=== PATIENT | female | born 1995 | race Caucasian/White ===

== ENCOUNTER 2018-03-08 15:15 | Emergency (ER) | payer SELFPAY ==
[~2018-03-08] VITALS: Ht 157.5 cm; Wt 54.4 kg
[2018-03-08] MEDS ORDERED: methylPREDNISolone 125 MG (Solu-MEDROL) VIAL ONE (16:05)
[2018-03-08] MEDS ORDERED: diphenhydrAMINE 50 MG/ML INJ (BENADRYL) ONE (16:05)
[2018-03-08] MEDS ORDERED: raNItidine 50 MG/2 ML INJ (ZANTAC) ONE (16:05)
[2018-03-08] MEDS ORDERED: diphenhydrAMINE 50 MG/ML INJ (BENADRYL) IVP ONE (16:15)
[2018-03-08] MEDS ORDERED: raNItidine 50 MG/2 ML INJ (ZANTAC) IJ SCH (16:15)
[2018-03-08] MEDS ORDERED: methylPREDNISolone 125 MG (Solu-MEDROL) VIAL IVP ONE (16:15)
--- NOTE | 2018-03-08 16:15 | ED General ---
General Chief Complaint: Allergic Reaction Stated Complaint: ALLERGIC REACTION Nursing Triage Note: PT PRESENTS TO ED WITH COMPLAINTS OF ALLERGIC REACTION STARTING AT 1400. PT REPORTS GENERALIZED ITCHING HIVES AND THROAT DISCOMFORT. PT TOOK 2 BENADRYL ROLL CLEANER. PT REPORTS THROAT DISCOMFORT IS BETTER HOWEVER ITCHING HAS NOT IMPROVED. Nursing Sepsis Screen: No Definite Risk Source of Information: Patient Exam Limitations: No Limitations History of Present Illness Date Seen by Provider: Mar 08, 2018 Time Seen by Provider: 16:13 Initial Comments To ER with an allergic reaction that began about 1400 today. She had just finished eating a salad which had tomatoes on it. She is not known to be allergic to tomatoes but suspects that this may be the cause of her allergic reaction. She has hives, diffuse itching and an itchy but not swollen feeling tongue. She's never had this before. She did take 2 Benadryl tablets at home one hour ago it would be at 3 PM. She denies improvement Timing/Duration: 1-3 Hours Severity: Moderate Allergies and Home Medications Allergies Coded Allergies: No Known Drug Allergies (Unverified , 03/08/18) Patient Home Medication List Home Medication List Reviewed: Yes Review of Systems Constitutional: see HPI EENTM: see HPI Respiratory: no symptoms reported Cardiovascular: no symptoms reported Genitourinary: no symptoms reported Musculoskeletal: no symptoms reported Skin: see HPI Psychiatric/Neurological: No Symptoms Reported Hematologic/Lymphatic: No Symptoms Reported Past Lbimsea-Gwkdva-Oruvze Hx Patient Social History Alcohol Use: Denies Use Recreational Drug Use: Yes Drug of Choice: MARIJUANA Smoking Status: Current Everyday Smoker Type Used: Cigarettes Recent Foreign Travel: No Contact w/Someone Who Travel: No Recent Infectious Disease Expo: No Recent Hopitalizations: No Physical Abuse: No Sexual Abuse: No Mistreated: No Fear: No Seasonal Allergies Seasonal Allergies: No Past Medical History Surgeries: Yes Abdominal, Tonsillectomy Respiratory: No Cardiac: No Neurological: No Genitourinary: No Gastrointestinal: No Musculoskeletal: No Endocrine: No HEENT: No Cancer: No Psychosocial: Yes Anxiety Nursing Suicide Risk Score: 0 Integumentary: No Blood Disorders: No Adverse Reaction/Blood Tranf: No Physical Exam Vital Signs Vital Signs - First Documented 03/08/18 15:58 Temp 97.2 Pulse 57 Resp 16 B/P (MAP) 123/88 (100) Pulse Ox 100 Capillary Refill : Less Than 3 Seconds Height, Weight, BMI Height: 5'2.00" Weight: 120lbs. oz. 54.676381ux; BMI Method:Stated General Appearance: No Apparent Distress, WD/WN, Other (speaks in full sentences, no distress, stable vital signs. No sign of airway involvement) HEENT: PERRL/EOMI, TMs Normal Neck: Full Range of Motion, Normal Inspection Respiratory: Lungs Clear, Normal Breath Sounds, No Accessory Muscle Use, No Respiratory Distress; No Stridor, No Wheezing Cardiovascular: Regular Rate, Rhythm, Normal Peripheral Pulses Gastrointestinal: Normal Bowel Sounds, Non Tender, Soft, Other (denies any abdominal cramping or diarrhea) Extremity: Normal Capillary Refill, Normal Inspection Neurologic/Psychiatric: Alert, Oriented x3 Skin: Normal Color, Warm/Dry, Rash Progress/Results/Core Measures Suspected Sepsis Recent Fever Within 48 Hours: No Infection Criteria Present: None New/Unexplained Altered Menta: No Sepsis Screen: No Definite Risk SIRS Temperature:97.2 Pulse: 57 Respiratory Rate: 16 Blood Pressure 123 /88 Mean: 100 Results/Orders My Orders Orders - GORGE TOPETE APRN Ranitidine Injection (Zantac Injection) (03/08/18 16:15) Methylprednisolone Sod Succ (Solu-Medrol (03/08/18 16:15) Diphenhydramine Injection (Benadryl Inje (03/08/18 16:15) Medications Given in ED Current Medications Medications Dose Ordered Sig/Rox Route Start Time Stop Time Status Last Admin Dose Admin Diphenhydramine HCl 25 mg ONCE ONCE IVP 03/08/18 16:15 03/08/18 16:16 DC 03/08/18 16:13 25 MG Methylprednisolone Sodium Succinate 125 mg ONCE ONCE IVP 03/08/18 16:15 03/08/18 16:16 DC 03/08/18 16:13 125 MG Vital Signs/I&O 03/08/18 03/08/18 03/08/18 15:58 16:14 17:07 Temp 97.2 98.3 Pulse 57 69 Resp 16 18 B/P (MAP) 123/88 (100) 123/71 Pulse Ox 100 98 Capillary Refill : Less Than 3 Seconds Blood Pressure Mean: 100 Departure Impression Primary Impression: Allergic reaction Disposition: 01 HOME, SELF-CARE Condition: Improved Departure-Patient Inst. Decision time for Depature: 16:49 Referrals: NO,LOCAL PHYSICIAN (PCP) Primary Care Physician Patient Instructions: Drug Allergy Add. Discharge Instructions: 1. Return to ER for any concerns 2. Follow-up with your doctor next week 3. Continue to take one Benadryl tablet every 4 hours for the rest of today. Return to ER for any worsening. All discharge instructions reviewed with patient and/or family. Voiced understanding. GORGE TOPETE APRN Mar 08, 2018 16:15
[2018-03-08 17:07] VITALS: BP 123/71
== END 2018-03-08 17:07 | disposition home or self-care (01) ==
LOC: EDUNIT# 15:15 → ER 15:17
DX: L50.9 Urticaria, unspecified (principal); T78.1XXA Other adverse food reactions, not elsewhere classified, initial encounter; F41.9 Anxiety disorder, unspecified; F12.10 Cannabis abuse, uncomplicated; F17.210 Nicotine dependence, cigarettes, uncomplicated; Z90.89 Acquired absence of other organs
CPT/HCPCS: 96372; 96374; 96375

== ENCOUNTER 2018-11-18 20:26 | Outpatient (CLI) | payer BC, MEDICAID ==
[~2018-11-18] VITALS: Ht 157.5 cm; Wt 81.2 kg
--- NOTE | 2018-11-18 20:25 | NUR ---
RENÉE VILLA presented to unit via AMBULATION from ED, accompanied by SO , with c/o ABD PAIN,DIZZINESS. RENÉE VILLA weighed, gowned, voided, and to bed. EFHM and TOCO applied, VS taken. RENÉE VILLA oriented to bed controls, call light, TV, heat, and A/C controls.
[2018-11-18 20:35] VITALS: BP 130/90
[2018-11-18] MEDS ORDERED: PREN-142 PO (20:38)
[2018-11-18 20:43] LABS: BILIRUBIN,URINE NEGATIVE (NEGATIVE); CLARITY,URINE SLIGHTLY CLOUDY; COLOR,URINE YELLOW; GLUCOSE, URINE (UA) NEGATIVE (NEGATIVE); KETONES,URINE NEGATIVE (NEGATIVE); LEUKOCYTE ESTERASE ,URINE NEGATIVE (NEGATIVE); NITRITE,URINE NEGATIVE (NEGATIVE); PH,URINE 7 (5-9); PROTEIN,URINE 1+ (NEGATIVE); UROBILINOGEN,URINE NORMAL (NORMAL)
[2018-11-18 20:51] LABS: BACTERIA,URINE TRACE /HPF; SQUAMOUS EPITHELIAL CELL,UR >50 /HPF
[2018-11-18 21:17] LABS: BASOPHILS % (AUTO) 0 % (0-10); EOSINOPHILS # (AUTO) 0.3 10^3/uL (0.0-0.3); EOSINOPHILS % (AUTO) 2 % (0-10); HEMATOCRIT 33 % (35-52); HEMOGLOBIN 11.3 G/DL (11.5-16.0); LYMPHOCYTES # (AUTO) 2.7 X 10^3 (1.0-4.0); LYMPHOCYTES % (AUTO) 19 % (12-44); MEAN CORPUSCULAR HEMOGLOBIN 28 PG (25-34); MEAN CORPUSCULAR HGB CONC 34 G/DL (32-36); MEAN CORPUSCULAR VOLUME 82 FL (80-99); MEAN PLATELET VOLUME 10.1 FL (7.4-10.4); MONOCYTES # (AUTO) 1.3 X 10^3 (0.0-1.0); MONOCYTES % (AUTO) 9 % (0-12); NEUTROPHILS % (AUTO) 70 % (42-75); PLATELET COUNT 238 10^3/uL (130-400); RED CELL DISTRIBUTION WIDTH 13.1 % (10.0-14.5); WHITE BLOOD COUNT 14.3 10^3/uL (4.3-11.0)
[2018-11-18 21:37] LABS: ALANINE AMINOTRANSFERASE 13 U/L (0-55); ALBUMIN 3.1 GM/DL (3.2-4.5); ALKALINE PHOSPHATASE 161 U/L (40-136); BILIRUBIN,TOTAL 0.3 MG/DL (0.1-1.0); BUN/CREATININE RATIO 13; CALCIUM 9.5 MG/DL (8.5-10.1); CARBON DIOXIDE 17 MMOL/L (21-32); CHLORIDE 108 MMOL/L (98-107); CREATININE SERUM 0.69 MG/DL (0.60-1.30); GFR ESTIMATED > 60; GLUCOSE 95 MG/DL (70-105); POTASSIUM 3.8 MMOL/L (3.6-5.0); SODIUM 137 MMOL/L (135-145); TOTAL PROTEIN 6.2 GM/DL (6.4-8.2); URIC ACID 3.3 MG/DL (2.6-7.2)
[2018-11-18 21:42] VITALS: BP 117/79
--- NOTE | 2018-11-18 22:10 | NUR ---
D/C instructions given & explained, pt. verbalized understanding & signed, copy of D/C instructions to pt. Pt. left [facility] ambulatory escorted by SO, to home via private vehicle.
== END 2018-11-18 22:10 | disposition home or self-care (01) ==
LOC: LDRP 20:26 → WSo 20:26
PROVIDERS: ATTEND Family Medicine
DX: O99.89 Other specified diseases and conditions complicating pregnancy, childbirth and the puerperium (principal); R42 Dizziness and giddiness; R51 Headache; R10.11 Right upper quadrant pain; Z3A.36 36 weeks gestation of pregnancy
CPT/HCPCS: 36415; 80053; 81000; 82570; 83615; 84156; 84550; 85025; 99213

== ENCOUNTER 2018-12-21 09:30 | Inpatient (IN) | payer BC, MEDICAID ==
[2018-12-21] VITALS (51 sets, daily range): BP systolic 111–153; BP diastolic 70–105
[~2018-12-21] VITALS: Ht 158.8 cm; Wt 82.8 kg
--- NOTE | 2018-12-21 09:26 | NUR ---
RENÉE VILLA presented to unit via AMBULATORY from HOME, accompanied by S/O, with c/o POSSIBLE SROM. RENÉE VILLA weighed, gowned, voided, and to bed. EFHM and TOCO applied, VS taken. RENÉE VILLA oriented to bed controls, call light, TV, heat, and A/C controls.
[~2018-12-21 09:30] MED LIST: PREN-142 PO
[2018-12-21] MEDS ORDERED: D5 LR IV SOLUTION 1,000 ML IV ONE (09:59)
[2018-12-21] MEDS: D5 LR IV SOLUTION 1,000 ML IV SCH ×2 (10:15→18:40)
[2018-12-21] MEDS ORDERED: AMPICILLIN FOR IV USE 2,000 MG in WATER (STERILE) FOR INJECTION 14.8 ML IV SCH (10:35)
[2018-12-21] MEDS ORDERED: AMPICILLIN FOR IV USE 2,000 MG VIAL ONE (10:39)
[2018-12-21] MEDS ORDERED: BUTORPHANOL INJ 2 MG/ML (STADOL) VIAL ONE (10:39)
[2018-12-21] MEDS ORDERED: WATER (STERILE) FOR INJECTION 20 ML ONE (10:40)
[2018-12-21] MEDS ORDERED: BUTORPHANOL INJ 2 MG/ML (STADOL) VIAL IV PRN (10:45)
[2018-12-21] MEDS ORDERED: MINERAL OIL CONCENTRATE 99.9% 15 ML UDC TOP PRN (10:45)
[2018-12-21 10:46] LABS: BASOPHILS # (AUTO) 0.1 10^3/uL (0.0-0.1); BASOPHILS % (AUTO) 0 % (0-10); EOSINOPHILS # (AUTO) 0.5 10^3/uL (0.0-0.3); EOSINOPHILS % (AUTO) 4 % (0-10); HEMATOCRIT 38 % (35-52); HEMOGLOBIN 12.9 G/DL (11.5-16.0); LYMPHOCYTES # (AUTO) 2.1 X 10^3 (1.0-4.0); LYMPHOCYTES % (AUTO) 15 % (12-44); MEAN CORPUSCULAR HEMOGLOBIN 26 PG (25-34); MEAN CORPUSCULAR HGB CONC 34 G/DL (32-36); MEAN CORPUSCULAR VOLUME 77 FL (80-99); MEAN PLATELET VOLUME 10.4 FL (7.4-10.4); MONOCYTES # (AUTO) 0.9 X 10^3 (0.0-1.0); MONOCYTES % (AUTO) 7 % (0-12); NEUTROPHILS # (AUTO) 10.2 X 10^3 (1.8-7.8); NEUTROPHILS % (AUTO) 74 % (42-75); PLATELET COUNT 276 10^3/uL (130-400); RED CELL DISTRIBUTION WIDTH 14.1 % (10.0-14.5); WHITE BLOOD COUNT 13.7 10^3/uL (4.3-11.0)
[2018-12-21] MEDS ORDERED: SUFENTA 0.6MCG/ML BUPIVA 0.125 100 ML ONE (13:18)
[2018-12-21] MEDS ORDERED: fentaNYL INJECTION 100 MCG/2 ML AMP ONE (13:52)
--- NOTE | 2018-12-21 13:55 | NUR ---
Ran RIDLEY CRNA here for epidural placement. Procedure explained, consent reviewed and signed by anesthesia. Questions answered to patient's satisfaction. Time out taken to verify correct patient/procedure. 1359 Patient up to side of bed, assisted into sitting position. 1402 Betadine prep done x3 and sterile drape applied. 1403 Local done, see anesthesia record. 1406 Test dose given, see anesthesia record for drug and dosage. Epidural catheter secured in place. Epidural placement complete. 1409 Assisted back into bed, monitors adjusted. Epidural dosed, see anesthesia record. Epidural of Sufenta/Bupvicaine @12cc/hr stated per pump. Patient tolerated procedure well.
[2018-12-21] MEDS ORDERED: CATHETER FLUSH 10 ML SYR IV SCH (14:00)
[2018-12-21] MEDS: EPIDURAL (SUFENTA 0.6MCG/ML BUPIVA 0.125%) 100 ML BAG EPI PRN ×2 (14:10→21:45)
[2018-12-21] MEDS ORDERED: LIDOCAINE PF 2% 5 ML (XYLOCAINE) VIAL ONE (14:10)
[2018-12-21] MEDS ORDERED: BUPIVACAINE 0.25% 30 ML (SENSORCAINE) VIAL ONE (14:10)
[2018-12-21] MEDS ORDERED: LACTATED RINGERS 1,000 ML IV ONE ×2 (14:16)
[2018-12-21] MEDS: AMPICILLIN FOR IV USE 1,000 MG in WATER (STERILE) FOR INJECTION 7.4 ML IV SCH ×3 (14:25→22:40)
[2018-12-21] MEDS ORDERED: ONDANSETRON 4 MG/2 ML (SDV) Z0FRAN IV PRN (14:30)
[2018-12-21] MEDS ORDERED: NALOXONE 0.4 MG/ML 1 ML (NARCAN) VIAL IV PRN (14:30)
[2018-12-21] MEDS ORDERED: OXYTOCIN/NORMAL SALINE 500 ML IV SCH (17:41)
[2018-12-21] MEDS ORDERED: OXYTOCIN/NORMAL SALINE 500 ML IV ONE (17:45)
--- NOTE | 2018-12-21 23:06 | History & Physical-OB ---
OB - Chief Complaint & HPI Date/Time Date of Admission: Date of Admission: December 21, 2018 at 09:52 Date seen by a Provider: December 21, 2018 Time Seen by a Provider: 13:05 Chief Complaint/History OB-Reason for Admission/Chief: Rupture of Membranes Hx : 1 Expected Date of Delivery: December 21, 2018 Gestational Age in Weeks: 40 Gestational Age in Days: 0 History of Labs GBS Pos O neg Ab neg Rub Imm HIV/HepB/RPR NR GC/Chyl neg GTT normal Allergies and Home Medications Allergies Coded Allergies: No Known Drug Allergies (Unverified , 03/08/18) Home Medications Vit No.124/Iron/FA 1 Each Tablet, 1 EACH PO DAILY, (Reported) Patient Home Medication List Home Medication List Reviewed: Yes OB - History Hx of Present Care: Yes Ultrasounds: Normal mid trimester US Obstetrical Complications: None Medical Complications: None Obstetrical History Hx : 1 Delivery History Adverse Rxn to Tranfusion: No Patient Past Medical History Tobacco Use in Preg Social History/Family History HIV/AIDS: No Recent Infectious Disease Expo: No Sexually Transmitted Disease: No Alcohol Use: Denies Use Recreational Drug Use: No Smoking Cessation: Current every day smoker Immunizations Tetanus Booster (TDap): Less than 5yrs (During preg) Rubella: immune RPR/VDRL: Negative GBS Status: Positive HBsAG: Negative OB - Admission Exam Physical Exam Vitals: Vital Signs 12/21/18 12/21/18 18:45 19:00 Temp 98.9 Pulse 80 Resp 18 B/P (MAP) 139/92 (108) Pulse Ox 100 O2 Delivery Room Air HEENT: NCAT Heart: Rhythm Normal Lungs: Clear Abdomen: Gravid Extremities: Normal Cervical Dilatation: 3cm Effacement: 50% Station: 0 Membranes: Ruptured Amniotic Fluid: Clear Heart Rate: 140's Accelerations: Accelerations Present Decelerations: No Decelerations Contractions on Admission: < 5 Minutes Apart Labs Laboratory Tests Test 12/21/18 10:15 Range/Units White Blood Count 13.7 H 4.3-11.0 10^3/uL Red Blood Count 4.91 4.35-5.85 10^6/uL Hemoglobin 12.9 11.5-16.0 G/DL Hematocrit 38 35-52 % Mean Corpuscular Volume 77 L 80-99 FL Mean Corpuscular Hemoglobin 26 25-34 PG Mean Corpuscular Hemoglobin Concent 34 32-36 G/DL Red Cell Distribution Width 14.1 10.0-14.5 % Platelet Count 276 130-400 10^3/uL Mean Platelet Volume 10.4 7.4-10.4 FL Neutrophils (%) (Auto) 74 42-75 % Lymphocytes (%) (Auto) 15 12-44 % Monocytes (%) (Auto) 7 0-12 % Eosinophils (%) (Auto) 4 0-10 % Basophils (%) (Auto) 0 0-10 % Neutrophils # (Auto) 10.2 H 1.8-7.8 X 10^3 Lymphocytes # (Auto) 2.1 1.0-4.0 X 10^3 Monocytes # (Auto) 0.9 0.0-1.0 X 10^3 Eosinophils # (Auto) 0.5 H 0.0-0.3 10^3/uL Basophils # (Auto) 0.1 0.0-0.1 10^3/uL OB - Assessment/Plan/Diagnosis Assessment Assessment: active labor, rupture of membranes Admission Dx Active Term Rupture of Membranes Admission Status: Inpatient Order (span 2 midnights) Reason for Inpatient Admission: Labor Plan Plan: Expectant Management Other Plan 23 yo G1 @ 40.0 wga here for SROM Plan - GBS +; Start Ampicillin - Expectant management HEATHER WILLIS MD December 21, 2018 23:06
[2018-12-22] VITALS (22 sets, daily range): BP systolic 112–136; BP diastolic 8–92
[2018-12-22] MEDS ORDERED: ceFAZolin 2 GM/50 ML NS 50 ML ONE (01:11)
--- NOTE | 2018-12-22 01:28 | Labor Progress Note ---
Labor Progress Note Labor Progress Note Date Seen by Provider: December 22, 2018 Time Seen by Provider: 01:23 Subjective: Pt pushing for 2 hrs with minimal progress and maternal fatigue and tachycardia. Objective: Cervical exam: Complete, 1+ station FHT: 165-170 Assessment/Plan: Graciela Santos-Carrier is a (23 /Para 1 / ,Gestational Age (wks)40.1 wga with failure to progress Dr Bey Notified and Urgent C/s called 2 Grams Ancep and 500 Azithromycin now Vitals - Labs Vital Signs - I&O Vital Signs Date Time Temp Pulse Resp B/P (MAP) Pulse Ox O2 Delivery O2 Flow Rate FiO2 12/21/18 19:00 80 18 139/92 (108) 100 Room Air 12/21/18 18:45 98.9 84 18 130/84 (99) 100 Room Air 12/21/18 18:30 87 18 132/86 (101) 99 Room Air 12/21/18 18:15 89 18 133/85 (101) 100 Room Air 12/21/18 18:00 105 18 136/89 (105) 100 Room Air 12/21/18 17:45 95 18 127/84 (98) 100 Room Air 12/21/18 17:30 101 18 128/85 (99) 100 Room Air 12/21/18 17:15 96 18 129/83 (98) 100 Room Air 12/21/18 17:00 97 18 121/79 (93) 100 Room Air 12/21/18 16:45 89 18 123/81 (95) 100 Room Air 12/21/18 16:30 98.3 88 18 126/79 (95) 100 Room Air 12/21/18 16:15 85 18 123/85 (98) 100 Room Air 12/21/18 16:00 97 18 111/77 (88) 99 Room Air 12/21/18 15:45 83 18 116/78 (91) 99 Room Air 12/21/18 15:30 92 18 112/74 (87) 98 Room Air 12/21/18 15:15 83 18 115/75 (88) 99 Room Air 12/21/18 15:00 90 18 125/85 (98) 99 Room Air 12/21/18 14:45 97.9 106 18 128/85 (99) 99 Room Air 12/21/18 14:30 94 18 123/83 (96) 99 Room Air 12/21/18 14:27 95 18 119/82 (94) 98 Room Air 12/21/18 14:25 83 18 126/79 (95) Room Air 12/21/18 14:22 90 18 134/87 (103) 99 Room Air 12/21/18 14:19 94 18 127/82 (97) Room Air 12/21/18 14:16 83 18 132/87 (102) 99 Room Air 12/21/18 14:13 93 20 127/83 (98) 100 Room Air 12/21/18 14:11 72 20 128/77 (94) 100 Room Air 12/21/18 14:10 20 149/89 (109) Room Air 12/21/18 14:07 81 20 146/91 (109) 100 Room Air 12/21/18 14:04 99 20 142/86 (104) Room Air 12/21/18 14:01 93 20 153/89 (110) 100 Room Air 12/21/18 13:27 85 20 149/97 (114) Room Air 12/21/18 11:50 97.1 12/21/18 09:35 111 20 136/96 (109) Room Air I & O 12/22/18 07:00 Intake Total 2022.2 ml Balance 2022.2 ml Labs Laboratory Tests 12/21/18 10:15: White Blood Count 13.7H, Red Blood Count 4.91, Hemoglobin 12.9, Hematocrit 38, Mean Corpuscular Volume 77L, Mean Corpuscular Hemoglobin 26, Mean Corpuscular Hemoglobin Concent 34, Red Cell Distribution Width 14.1, Platelet Count 276, Mean Platelet Volume 10.4, Neutrophils (%) (Auto) 74, Lymphocytes (%) (Auto) 15, Monocytes (%) (Auto) 7, Eosinophils (%) (Auto) 4, Basophils (%) (Auto) 0, Neutrophils # (Auto) 10.2H, Lymphocytes # (Auto) 2.1, Monocytes # (Auto) 0.9, Eosinophils # (Auto) 0.5H, Basophils # (Auto) 0.1 HEATHER WILLIS MD December 22, 2018 01:28
[2018-12-22] MEDS ORDERED: METOCLOPRAMIDE INJ 10 MG/2 ML (REGLAN) ONE (01:32)
[2018-12-22] MEDS ORDERED: FAMOTIDINE 20MG/2ML IV (PEPCID) ONE (01:32)
[2018-12-22] MEDS ORDERED: CITRIC ACID/SOB CIT (BICITRA) 30 ML UDC ONE (01:32)
[2018-12-22] MEDS ORDERED: OXYTOCIN/NORMAL SALINE 500 ML IV SCH (01:47)
[2018-12-22] MEDS ORDERED: D5 LR IV SOLUTION 1,000 ML IV SCH (01:47)
[2018-12-22] MEDS ORDERED: KETAMINE/NaCl 50 MG/5 ML SYRINGE ONE (01:51)
[2018-12-22] MEDS ORDERED: LIDOCAINE PF 2% 5 ML (XYLOCAINE) VIAL ONE (01:53)
[2018-12-22] MEDS ORDERED: fentaNYL INJECTION 100 MCG/2 ML AMP ONE (01:55)
--- NOTE | 2018-12-22 01:55 | Progress Note-Pre Operative ---
Pre-Operative Progress Note H&P Reviewed The H&P was reviewed. Asked to consult by Dr. Parker for a 23 year old G1 at 40 1/7 week who presented on 12/20/18 with SROM. She has labored over 24 hours and has pushed > 2 hours without adequate descent. Dr. Parker has requested a section. She Is GBS positive and has received several doses of amp icillin. was uncomplicated Upon my exam, heartrate is 170s. Temp is 99.4 Urine is blood tinged with replacement of the urinary catheter and head is low in the pelvis but not < +1 station. There is a great amount of caput noted. She continues to contract every 2-3 minutes without augmentation at this time. Will plan primary section. Risks include infection, injury to fetus, bowel, bladder and ureter. There is also risk of bleeding. Hgb yesterday was 12.9. There is risk of blood clot, anesthesia risks and remote risk of . She has signed appropriate consent forms. She will be given Ancef and Azith romycin (as she has had rupture of membranes) prophylactically. Date Seen by Provider: December 22, 2018 Time Seen by Provider: 01:35 Date H&P Reviewed: December 22, 2018 Time H&P Reviewed: 01:30 Pre-Operative Diagnosis: Failure to descend, arrest of descent, tachycardia JAGDISH EL DO December 22, 2018 01:55
[2018-12-22] MEDS ORDERED: FAMOTIDINE 20MG/2ML IV (PEPCID) IV ONE (02:00)
[2018-12-22] MEDS ORDERED: ceFAZolin 2 GM/50 ML NS 50 ML IV ONE (02:00)
[2018-12-22] MEDS ORDERED: METOCLOPRAMIDE INJ 10 MG/2 ML (REGLAN) IV ONE (02:00)
[2018-12-22] MEDS ORDERED: TETANUS,DIPTH,PERTUSS P/F (BOOSTRIX) 0.5 ML VIAL IM SCH (02:00)
[2018-12-22] MEDS ORDERED: ONDANSETRON 4 MG/2 ML (SDV) Z0FRAN IVP PRN (02:00)
[2018-12-22] MEDS ORDERED: AZITHROMYCIN INJECTION 500 MG in NS (IVPB) 250 ML IV ONE (02:00)
[2018-12-22] MEDS ORDERED: CITRIC ACID/SOB CIT (BICITRA) 30 ML UDC PO ONE (02:00)
[2018-12-22] MEDS ORDERED: MEASLES,MUMPS,RUBELLA 1 EA INJ SC SCH (02:00)
[2018-12-22] MEDS ORDERED: morphine INJ 4 MG/ML 1 ML (VIAL/SYRINGE) IVP PRN (02:00)
--- NOTE | 2018-12-22 02:03 | NUR ---
PT TO OR AT THIS TIME FOR C/S. CARES TO OR STAFF.
[2018-12-22] MEDS: KETOROLAC 30 MG/ML VIAL IV SCH ×4 (02:30→23:22)
[2018-12-22] MEDS ORDERED: BUPIVACAINE 0.5% 30 ML (SENSORCAINE) VIAL ONE (02:44)
[2018-12-22] MEDS ORDERED: OXYTOCIN/NORMAL SALINE 1,000 ML IV ONE (02:44)
--- NOTE | 2018-12-22 03:10 | Cesarean Section Operative ---
Procedure Procedure Note Pre-operative Diagnosis: Graciela Sibley is a 23 /Para 1 / 0, Gestational Age 40 1/7 weeks, arrest of descent, tachycardia, prolonged rupture of membranes, GBS + Post-operative Diagnosis: same Procedure: primary low transverse section Physician: JAGDISH EL Estimated blood loss: 500 mL Disposition: stable Findings: Viable male , Apgars pending, weight pending, intact placenta, 3vc, normal appearing uterus, tubes, and ovaries. Indications:Graciela Sibley is a 23 /Para 1 / 0,Gestational Age 40 1/7 weeks, arrest of descent, tachycardia, prolonged rupture of membranes, GBS + Procedure Details: The patient was seen in pre-op and the procedure was discussed with the patient in full, including the risks, benefits, and alternatives. All questions were answered. The patient was taken to the operating room and a time out was performed, verifying patient and procedure. The Ford catheter had been replaced after pushing for two hours and the urine was bloody. After epidural anesthesia was redosed by our anesthesia colleagues, the patient was placed in the dorsal supine with leftward tilt for uterine displacement.~ Her abdomen was then prepped and draped in the typical sterile fashion. A Pfannenstiel skin incision was made using a scalpel and carried down through the underlying fascia. The fascia was incised in the midline and tented up using Katt clamps. On both the inferior and superior fascia side the rectus muscle was dissected off bluntly and sharply using Gimenez scissors. The peritoneum was identified and entered bluntly in the midline. This was then stretched laterally using manual strength. After entering the abdominal cavity and confirming lack of intraperitoneal adhesions, a large Roberto retractor was placed and the lower uterine segment was visualized. scalpel was utilized to make a low transverse uterine incision. The right shoulder was at the incision site. I attempted to grasp the infant's head, but it was low in the vagina and I could not easily break the suction/seal of the head in the pelvis without an assist from below. The head was wedged in the pelvis in a transverse position. I then delivered the feet first. I grasped the feet and brought them through the incision and then was able to deliver the shoulders and flexed the arms across the body. At this point, I could ease the head out of the pelvis without traction and used a modified version of the Qvhupuvri-Lovfkbg-Gkpg maneuver to keep the chin flexed onto the chest. Mouth and nares were suctioned with bulb suction. The baby was initially very limp. After the umbilical cord was clamped and cut, the infant was handed off to the pediatric staff. There was then a spontaneous cry. A s ample of cord blood was then obtained. Cord gas was sent. The placenta was delivered intact via uterine massage. The uterus was cleared of all clots and debris. The uterine incision was noted to have extended in the midline inferiorly. It was now closed using 0 Vicryl in a running locked fashion. A second imbricated layer was placed using 0 Vicryl in a running fashion as well. A third layer was used to reinforce the area that had extended (about 3-4 cm). The bilateral tubes and ovaries appeared normal. The abdominal gutters were cleared of all clots and debris. The pelvis was now irrigated. A final check of the uterine incision showed it to be hemostatic. Intercede was placed. The peritoneum was closed using 3-0 Vicryl in a running fashion. The fascia was closed with 0 Vicryl in a running fashion. The subcutaneous space was hemostatic, and irrigated. The subcutaneous space was closed with 3-0 Plain in several single interrupted stitches. The skin was then closed using 4-0 Monocryl in a running subcuticular fashion. The skin edges were reapproximated together and were hemostatic. A pressure dressing was applied. All sponge, lap and needle counts were correct at the end of the procedure per nursing. The urine was still pink, blood tinged, but clearing at the completion of the procedure. Maternal temperature was 100.1 (prior to incision it was 99.4) but internally, she felt very warm. Will continue antibiotics for 24 hours. cord pH 7.08. Apgars 3/7/8 Weight pending. Baby was taken to the nursery for evaluation. Vitals - Labs Vital Signs - I&O Vital Signs Date Time Temp Pulse Resp B/P (MAP) Pulse Ox O2 Delivery O2 Flow Rate FiO2 12/21/18 19:00 80 18 139/92 (108) 100 Room Air 12/21/18 18:45 98.9 84 18 130/84 (99) 100 Room Air 5/23/19 18:30 87 18 132/86 (101) 99 Room Air 12/21/18 18:15 89 18 133/85 (101) 100 Room Air 12/21/18 18:00 105 18 136/89 (105) 100 Room Air 12/21/18 17:45 95 18 127/84 (98) 100 Room Air 12/21/18 17:30 101 18 128/85 (99) 100 Room Air 12/21/18 17:15 96 18 129/83 (98) 100 Room Air 12/21/18 17:00 97 18 121/79 (93) 100 Room Air 12/21/18 16:45 89 18 123/81 (95) 100 Room Air 12/21/18 16:30 98.3 88 18 126/79 (95) 100 Room Air 12/21/18 16:15 85 18 123/85 (98) 100 Room Air 12/21/18 16:00 97 18 111/77 (88) 99 Room Air 12/21/18 15:45 83 18 116/78 (91) 99 Room Air 12/21/18 15:30 92 18 112/74 (87) 98 Room Air 12/21/18 15:15 83 18 115/75 (88) 99 Room Air 12/21/18 15:00 90 18 125/85 (98) 99 Room Air 12/21/18 14:45 97.9 106 18 128/85 (99) 99 Room Air 12/21/18 14:30 94 18 123/83 (96) 99 Room Air 12/21/18 14:27 95 18 119/82 (94) 98 Room Air 12/21/18 14:25 83 18 126/79 (95) Room Air 12/21/18 14:22 90 18 134/87 (103) 99 Room Air 12/21/18 14:19 94 18 127/82 (97) Room Air 12/21/18 14:16 83 18 132/87 (102) 99 Room Air 12/21/18 14:13 93 20 127/83 (98) 100 Room Air 12/21/18 14:11 72 20 128/77 (94) 100 Room Air 12/21/18 14:10 20 149/89 (109) Room Air 12/21/18 14:07 81 20 146/91 (109) 100 Room Air 12/21/18 14:04 99 20 142/86 (104) Room Air 12/21/18 14:01 93 20 153/89 (110) 100 Room Air 12/21/18 13:27 85 20 149/97 (114) Room Air 12/21/18 11:50 97.1 12/21/18 09:35 111 20 136/96 (109) Room Air I & O 12/22/18 07:00 Intake Total 2272.2 ml Balance 2272.2 ml Labs Laboratory Tests 12/21/18 10:15: White Blood Count 13.7H, Red Blood Count 4.91, Hemoglobin 12.9, Hematocrit 38, Mean Corpuscular Volume 77L, Mean Corpuscular Hemoglobin 26, Mean Corpuscular Hemoglobin Concent 34, Red Cell Distribution Width 14.1, Platelet Count 276, Mean Platelet Volume 10.4, Neutrophils (%) (Auto) 74, Lymphocytes (%) (Auto) 15, Monocytes (%) (Auto) 7, Eosinophils (%) (Auto) 4, Basophils (%) (Auto) 0, Neutrophils # (Auto) 10.2H, Lymphocytes # (Auto) 2.1, Monocytes # (Auto) 0.9, Eosinophils # (Auto) 0.5H, Basophils # (Auto) 0.1 JAGDISH EL DO December 22, 2018 03:10
[2018-12-22] MEDS ORDERED: AMPICILLIN/SULBACTAM INJECTION 3 GM in NS (IVPB) 100 ML IV ONE (03:15)
[2018-12-22] MEDS ORDERED: GENTAMICIN (ADULT) INJECTION 120 MG in NS (IVPB) 100 ML IV ONE (03:15)
--- NOTE | 2018-12-22 03:17 | Discharge Inst-Women's Service ---
Discharge Inst-Women's Serv Depart Medication/Instructions New, Converted or Re-Newed RX: RX on Chart Instructions nothing in the vagina for 6 weeks, no lifting over 25 lbs, no driving for 1 week Final Diagnosis arrest of descent chorioamnionitis tachycardia GBS + Spontaneous labor Procedure - primary section Consults/Follow Up Additional Follow Up: Yes ([address] Bey. [address] Parker) Activity Activity: Activity as Tolerated Driving Instructions: No Driving for 1 Week NO SMOKING: NO SMOKING Nothing Inside Vagina: No Douching, No Urbank, No Tampons Diet Discharge Diet: No Restrictions Symptoms to Report to : Bleeding Excessive, Pain Increased, Fever Over 101 Degrees F, Vaginal Bleeding Increase, Cramps in Feet or Legs, Vaginal Discharge Foul For Any Problems or Questions: Contact Your Physician Skin/Wound Care Infection Signs and Symptoms: Increased Redness, Foul Odor of Wound, Increased Drainage, Skin Itchy or Has a Rash, Increased Swelling, Temperature Above 101 F Operative Area Clean and Dry: Keep Incision Clean/Dry Stitches/[place]/Dermabond: Dermabond Bathing Instructions: JAGDISH Fang DO December 22, 2018 03:17
[2018-12-22] MEDS ORDERED: IBUP-844 PO (03:19)
[2018-12-22] MEDS ORDERED: OXC5T PO (03:19)
[2018-12-22] MEDS ORDERED: DOCU100C37 PO (03:19)
[2018-12-22] MEDS ORDERED: ACET-77 PO (03:19)
[2018-12-22] MEDS ORDERED: AMPICILLIN/SULBACTAM 3 GM VIAL (UNASYN) ONE (05:31)
[2018-12-22] MEDS ORDERED: NS (IVPB) 100 ML ONE ×2 (05:32)
[2018-12-22] MEDS ORDERED: GENTAMICIN 40 MG/ML 2 ML INJ SDV ONE (05:32)
[2018-12-22] MEDS ORDERED: IBUPROFEN 600 MG (MOTRIN) TAB PO SCH (06:00)
[2018-12-22] MEDS ORDERED: CATHETER FLUSH 10 ML SYR IV SCH (06:00)
[2018-12-22] MEDS: DOCUSATE SODIUM 100 MG (COLACE) CAP PO SCH ×2 (08:23→20:04)
--- NOTE | 2018-12-22 09:00 | NUR ---
ICE PACKS PROVIDED TO PT. DR. ALBARRAN AT PT'S BEDSIDE.
[2018-12-22] MEDS: D5 LR IV SOLUTION 1,000 ML IV SCH ×2 (09:25→21:56)
--- NOTE | 2018-12-22 09:25 | Anesthesia-Regional Post-Op ---
Regional Patient Condition Mental Status: Alert, Oriented x3 Circulation: Same as Pre-Op Headache: Absent Sensation: Full Recovery Motor Block: Absent Post Op Complications Complications None Follow Up Care/Instructions Patient Instructions None needed. Anesthesia/Patient Condition Patient is doing well, no complaints, stable vital signs, no apparent adverse anesthesia problems. No complications reported per nursing. WAYNE RIDLEY CRNA December 22, 2018 09:25
--- NOTE | 2018-12-22 11:05 | NUR ---
CATHETER DC'D; SEE INTERVENTION FOR FURTHER. + PERICARE AND PAD CHANGE. PT SITS UP ON THE SIDE OF THE BED BRIEFLY BEFORE GETTING UP IN THE ROOM, PT STEADY ON HER FEET. PT THEN AMBULATES IN THE HALLWAYS WITH S/O. PT C/O OF INCISIONAL PAIN.
[2018-12-22] MEDS: ACETAMINOPHEN 500 MG TAB (TYLENOL) PO SCH ×2 (13:02→20:05)
--- NOTE | 2018-12-22 13:12 | NUR ---
PT AMBULATES OFF UNIT WITH S/O.
[2018-12-22] MEDS: AMPICILLIN/SULBACTAM INJECTION 1.5 GM in NS (IVPB) 100 ML IV SCH ×2 (14:18→21:56)
--- NOTE | 2018-12-22 14:22 | NUR ---
PT IN BED, TALKING ON THE PHONE WITH HER MOM, ABX HUNG AND INFUSING; SEE EMAR FOR FURTHER. PT DENIES ANY NEEDS AT THIS TIME. CALL LIGHT WITHIN REACH.
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
--- NOTE | 2018-12-22 16:19 | NUR ---
PT REQUESTING TO TAKE A SHOWER. SHOWER SET UP, IV COVERED. PT'S AUNT AT THE BEDSIDE. NO FURTHER NEEDS VOICED.
--- NOTE | 2018-12-22 17:22 | NUR ---
PT BACK TO BED, INCISIONAL DRESSING REMOVED. INCISION LEFT OPEN TO AIR, SKIN GLUE INTACT, NO DRAINAGE NOTED. PT ENCOURAGED TO GET BACK UP TO THE BATHROOM AND BLOW DRY OVER INCISION, PT VERBALIZES UNDERSTANDING. NO NEEDS VOICED.
--- NOTE | 2018-12-22 18:07 | NUR ---
PT IN BED, S/O AT THE BEDSIDE. MEDS GIVEN; SEE EMAR FOR FURTHER. URINE EMPTIED FROM PT'S HAT. NO FURTHER NEEDS VOICED. CALL LIGHT WITHIN REACH.
[2018-12-23] MEDS: AMPICILLIN/SULBACTAM INJECTION 1.5 GM in NS (IVPB) 100 ML IV SCH ×2 (02:42→06:06)
[2018-12-23] MEDS ORDERED: MILK OF MAGNESIA 400 MG/5 ML 30 ML UDC PO PRN (05:00)
[2018-12-23 05:42] LABS: BASOPHILS # (AUTO) 0.1 10^3/uL (0.0-0.1); BASOPHILS % (AUTO) 0 % (0-10); EOSINOPHILS # (AUTO) 0.5 10^3/uL (0.0-0.3); EOSINOPHILS % (AUTO) 3 % (0-10); HEMATOCRIT 30 % (35-52); LYMPHOCYTES # (AUTO) 3.3 X 10^3 (1.0-4.0); LYMPHOCYTES % (AUTO) 20 % (12-44); MEAN CORPUSCULAR HEMOGLOBIN 27 PG (25-34); MEAN CORPUSCULAR HGB CONC 33 G/DL (32-36); MEAN CORPUSCULAR VOLUME 81 FL (80-99); MEAN PLATELET VOLUME 9.9 FL (7.4-10.4); MONOCYTES # (AUTO) 1.1 X 10^3 (0.0-1.0); MONOCYTES % (AUTO) 6 % (0-12); NEUTROPHILS # (AUTO) 11.8 X 10^3 (1.8-7.8); NEUTROPHILS % (AUTO) 71 % (42-75); PLATELET COUNT 257 10^3/uL (130-400); RED CELL DISTRIBUTION WIDTH 14.4 % (10.0-14.5); WHITE BLOOD COUNT 16.7 10^3/uL (4.3-11.0)
[2018-12-23] MEDS: DOCUSATE SODIUM 100 MG (COLACE) CAP PO SCH (07:41)
--- NOTE | 2018-12-23 10:46 | Postpartum Progress Note ---
Post Op Post-operative Day #[] Subjective: Patient is without complaints. Ambulating, voiding after simon removed. Tolerating a regular diet without nausea or vomiting. Normal lochia. Pain is well controlled with oral pain medications. Passing flatus. [] feeding. [] Objective: 12/22/18 23:20 Temp 97.7 Pulse 82 Resp 18 B/P (MAP) 125/84 (98) Pulse Ox 99 12/23/18 00:00 Output Total 1900 ml Balance -1900 ml Laboratory Tests Test 12/23/18 05:25 Range/Units White Blood Count 16.7 H 4.3-11.0 10^3/uL Red Blood Count 3.74 L 4.35-5.85 10^6/uL Hemoglobin 10.0 #L 11.5-16.0 G/DL Hematocrit 30 L 35-52 % Mean Corpuscular Volume 81 80-99 FL Mean Corpuscular Hemoglobin 27 25-34 PG Mean Corpuscular Hemoglobin Concent 33 32-36 G/DL Red Cell Distribution Width 14.4 10.0-14.5 % Platelet Count 257 130-400 10^3/uL Mean Platelet Volume 9.9 7.4-10.4 FL Neutrophils (%) (Auto) 71 42-75 % Lymphocytes (%) (Auto) 20 12-44 % Monocytes (%) (Auto) 6 0-12 % Eosinophils (%) (Auto) 3 0-10 % Basophils (%) (Auto) 0 0-10 % Neutrophils # (Auto) 11.8 H 1.8-7.8 X 10^3 Lymphocytes # (Auto) 3.3 1.0-4.0 X 10^3 Monocytes # (Auto) 1.1 H 0.0-1.0 X 10^3 Eosinophils # (Auto) 0.5 H 0.0-0.3 10^3/uL Basophils # (Auto) 0.1 0.0-0.1 10^3/uL Physical Exam: General - Alert and oriented, no apparent distress Abdomen - Soft, appropriately tender to palpation, non-distended, fundus firm at umbilicus Incision - clean, dry and intact; no erythema or induration, no drainage Extremities - no edema, negative Osmany's bilaterally [] Assessment: [] post-operative day # [], status post []. Recovering well, hemodynamically stable Acute blood loss anemia [] Plan: Routine post-operative care. Encourage breast feeding. Encourage ambulation. VTE prophylaxis: SCDs. Ferrous sulfate supplementation. Plan for discharge [] Vitals - Labs Vital Signs - I&O Vital Signs Date Time Temp Pulse Resp B/P (MAP) Pulse Ox O2 Delivery O2 Flow Rate FiO2 12/22/18 23:20 97.7 82 18 125/84 (98) 99 12/22/18 19:55 98.0 84 18 128/87 (101) 100 12/22/18 12:53 98.2 89 18 133/92 (106) 99 Room Air I & O 12/23/18 07:00 Intake Total 103 ml Output Total 3800 ml Balance -3697 ml Labs Laboratory Tests 12/23/18 05:25: White Blood Count 16.7H, Red Blood Count 3.74L, Hemoglobin 10.0#L, Hematocrit 30L, Mean Corpuscular Volume 81, Mean Corpuscular Hemoglobin 27, Mean Corpuscular Hemoglobin Concent 33, Red Cell Distribution Width 14.4, Platelet Count 257, Mean Platelet Volume 9.9, Neutrophils (%) (Auto) 71, Lymphocytes (%) (Auto) 20, Monocytes (%) (Auto) 6, Eosinophils (%) (Auto) 3, Basophils (%) (Auto) 0, Neutrophils # (Auto) 11.8H, Lymphocytes # (Auto) 3.3, Monocytes # (Auto) 1.1H, Eosinophils # (Auto) 0.5H, Basophils # (Auto) 0.1 JAGDISH EL DO December 23, 2018 10:46
[2018-12-23 12:19] VITALS: BP 133/92
--- NOTE | 2018-12-23 12:50 | NUR ---
Oral and written home instructions given. Verbalized understanding. Expressed breast milk given to pt prior to discharge. in another facility. Ambulated to exit accompanied by staff and significant other.
--- NOTE | 2018-12-26 09:04 | NUR ---
CM/PARISA. Followed up with [facility]/Maria L Grimm to discuss concerns. She will have her disability case manager in [facility] contact patient and attempt to begin supportive services.
== END 2018-12-23 13:00 | disposition home or self-care (01) | DRG 787 ==
LOC: WSo 09:30 → LDRP 09:30 → WSo 09:52 → LDRP 09:52
PROVIDERS: ADMIT Family Medicine; ATTEND Family Medicine
PROC: 10D00Z1 Extraction of Products of Conception, Low, Open Approach (ICD-10-PCS; principal; 2018-12-22 02:04)
DX: O99.333 Smoking (tobacco) complicating pregnancy, third trimester (principal); F17.210 Nicotine dependence, cigarettes, uncomplicated; O75.2 Pyrexia during labor, not elsewhere classified; O90.81 Anemia of the puerperium; D62 Acute posthemorrhagic anemia; O62.1 Secondary uterine inertia; O76 Abnormality in fetal heart rate and rhythm complicating labor and delivery; O42.02 Full-term premature rupture of membranes, onset of labor within 24 hours of rupture; O99.820 Streptococcus B carrier state complicating pregnancy; Z3A.40 40 weeks gestation of pregnancy; Z37.0 Single live birth
CPT/HCPCS: 36415; 85025; 86850; 86900; 86901; 94664; 94760; 99212

== ENCOUNTER 2020-11-17 10:24 | Emergency (ER) | payer BC, MEDICAID ==
[~2020-11-17] VITALS: Ht 157 cm; Wt 58.9 kg
[~2020-11-17 10:24] MED LIST changes: +ACET-78 PO; +DOCU100C37 PO; +IBUP-844 PO; +OXC5T PO
[2020-11-17 10:57] LABS: BILIRUBIN,URINE NEGATIVE (NEGATIVE); CLARITY,URINE CLEAR; COLOR,URINE YELLOW; GLUCOSE, URINE (UA) NEGATIVE (NEGATIVE); KETONES,URINE NEGATIVE (NEGATIVE); LEUKOCYTE ESTERASE ,URINE NEGATIVE (NEGATIVE); NITRITE,URINE NEGATIVE (NEGATIVE); PROTEIN,URINE NEGATIVE (NEGATIVE)
[2020-11-17] MEDS ORDERED: LACTATED RINGERS 1,000 ML IV ONE (11:00)
[2020-11-17] MEDS ORDERED: ONDANSETRON 4 MG/2 ML (SDV) Z0FRAN IVP ONE (11:00)
[2020-11-17] MEDS ORDERED: KETOROLAC 30 MG/ML VIAL IVP ONE (11:00)
[2020-11-17 11:04] LABS: BACTERIA,URINE TRACE /HPF; WBC,URINE RARE /HPF
--- NOTE | 2020-11-17 11:13 | ED Abdominal Pain ---
General Chief Complaint: Abdominal/GI Problems Stated Complaint: RLQ PAIN Nursing Triage Note: PT PRESENTS TO ED COMPLAINING OF RLQ PAIN SINCE TUESDAY Sepsis Screen: No Definite Risk Source of Information: Patient Exam Limitations: No Limitations (KILO NARAYAN) History of Present Illness Date Seen by Provider: Nov 17, 2020 Time Seen by Provider: 10:35 Initial Comments Graciela is a 25 y/o female that presents to the ER via private vehicle for three days of sharp RLQ abdominal pain. The pain began after having intercourse and is exacerbated when standing, lifting and having bowel movements. She says the pain is an 8/10. Radiation of pain to the umbilicus. Pain when she pushes on her c- section incision. Associated nausea with no vomiting. Tylenol has not helped. She is not on control and LMP was last month, states it was >3weeks ago and should be starting soon. Surgical hx is positive for [address] El. No other abdominal surgeries. Denies Chest pain, SOB, constipation, blood in stool, dysuria, incomplete emptying, vaginal discharge, and F/C at this time. Denies concern for STDs at this time. Timing/Duration: 1/2 Hour Severity/Quality: Mild Location: RLQ Radiation: Periumbilical Activities at Onset: Activity Associated Symptoms: Nausea/Vomiting (no vomiting) (KILO NARAYAN) Allergies and Home Medications Allergies Coded Allergies: No Known Drug Allergies (Unverified , 03/08/18) Home Medications Acetaminophen 500 Mg Tablet, 1,000 MG PO Q6HR Prescribed by: JAGDISH EL on 12/22/18318 Docusate Sodium 100 Mg Capsule, 100 MG PO BID Prescribed by: JAGDISH EL on 12/22/18318 Ibuprofen 600 Mg Tablet, 600 MG PO Q6HR Prescribed by: JAGDISH EL on 12/22/18318 Ondansetron 4 Mg Tab.rapdis, 4 MG PO Q6H PRN for NAUSEA/VOMITING Prescribed by: JOSEPH QUIROZ on 11/17/20 1240 Last Action: New Order Oxycodone Hcl 5 Mg Tab, 5 MG PO q6hr PRN for To achieve TAG Prescribed by: JAGDISH EL on 12/22/18318 Vit No.124/Iron/FA 1 Each Tablet, 1 EACH PO DAILY, (Reported) Patient Home Medication List Home Medication List Reviewed: Yes (JOSEPH QUIROZ) Review of Systems Review of Systems Constitutional: no symptoms reported EENTM: No Symptoms Reported Respiratory: No Symptoms Reported Cardiovascular: No Symptoms Reported Gastrointestinal: Abdominal Pain; Denies Blood Streaked Stools, Denies Rectal Bleeding Genitourinary: No Symptoms Reported Musculoskeletal: no symptoms reported Skin: no symptoms reported Psychiatric/Neurological: No Symptoms Reported Endocrine: No Symptoms Reported Hematologic/Lymphatic: No Symptoms Reported (SYLVAIN,KILO MED STUDEN) Past Dbdcwae-Uzjqqq-Toehgf Hx Patient Social History Alcohol Use: Denies Use Drug of Choice: MARIJUANA Smoking Status: Current Everyday Smoker Type Used: Cigarettes Recent Infectious Disease Expo: No Recent Hopitalizations: No (SYLVAIN,KILO MED STUDEN) Immunizations Up To Date Tetanus Booster (TDap): Less than 5yrs PED Vaccines UTD: Yes (SYLVAIN,KILO MED STUDEN) Seasonal Allergies Seasonal Allergies: No (SYLVAIN,KILO MED STUDEN) Past Medical History Surgeries: Yes Abdominal, Section, Tonsillectomy Respiratory: No Cardiac: No Neurological: No Female Reproductive Disorders: Denies Sexually Transmitted Disease: No HIV/AIDS: No Genitourinary: No Gastrointestinal: No Musculoskeletal: No Endocrine: No HEENT: No Cancer: No Psychosocial: Yes Anxiety Integumentary: Yes (CYSTIC ACNE) Blood Disorders: No Adverse Reaction/Blood Tranf: No (SYLVAIN,KILO MED STUDEN) Family Medical History Alcoholism 19 FATHER FHx: hypothyroidism 19 MOTHER Stent 19 FATHER Physical Exam Vital Signs Vital Signs - First Documented 11/17/20 11/17/20 11/17/20 10:29 10:45 12:35 Temp 37.0 Pulse 92 Resp 20 B/P (MAP) 133/90 (104) Pulse Ox 96 O2 Delivery Room Air (JOSEPH QUIROZ) Vital Signs Capillary Refill : Less Than 3 Seconds (SYLVAIN,KILO MED STUDEN) Height/Weight/BMI Height: 5'2.50" Weight: 182lbs. 8.0oz. 82.152035pw; 23.00 BMI Method:Stated General Appearance: mild distress Respiratory: chest non-tender, no respiratory distress, no accessory muscle use Cardiovascular: normal peripheral pulses, regular rate, rhythm, no edema Peripheral Pulses: 2+ Radial Pulses (R), 2+ Radial Pulses (L) Gastrointestinal: soft; No distended, No guarding; tenderness Extremities: normal range of motion, no pedal edema, no calf tenderness Neurologic/Psychiatric: alert, oriented x 3 Skin: normal color Lymphatic: no adenopathy Exam Comments Abdominal tenderness to light and deep palpation in the right lower quadrant, especially over the surgical incision. negative Lloyds punch. Negative Rubio. Negative [place]ving. (KILO NARAYAN [employer]) Progress/Results/Core Measures Results/Orders Lab Results Laboratory Tests Test 11/17/20 10:30 11/17/20 11:07 Range/Units Urine Color YELLOW Urine Clarity CLEAR Urine pH 6.0 5-9 Urine Specific [place] 1.020 1.016-1.022 Urine Protein NEGATIVE NEGATIVE Urine Glucose (UA) NEGATIVE NEGATIVE Urine Ketones NEGATIVE NEGATIVE Urine Nitrite NEGATIVE NEGATIVE Urine Bilirubin NEGATIVE NEGATIVE Urine Urobilinogen 0.2 < = 1.0 MG/DL Urine Leukocyte Esterase NEGATIVE NEGATIVE Urine RBC (Auto) NEGATIVE NEGATIVE Urine RBC NONE /HPF Urine WBC RARE /HPF Urine Squamous Epithelial Cells 5-10 /HPF Urine Crystals NONE /LPF Urine Bacteria TRACE /HPF Urine Casts NONE /LPF Urine Mucus NEGATIVE /LPF Urine Culture Indicated NO White Blood Count 7.1 4.3-11.0 10^3/uL Red Blood Count 5.02 3.80-5.11 10^6/uL Hemoglobin 13.6 11.5-16.0 g/dL Hematocrit 42 35-52 % Mean Corpuscular Volume 85 80-99 fL Mean Corpuscular Hemoglobin 27 25-34 pg Mean Corpuscular Hemoglobin Concent 32 32-36 g/dL Red Cell Distribution Width 12.9 10.0-14.5 % Platelet Count 305 130-400 10^3/uL Mean Platelet Volume 9.5 9.0-12.2 fL Immature Granulocyte % (Auto) 1 % Neutrophils (%) (Auto) 69 42-75 % Lymphocytes (%) (Auto) 20 12-44 % Monocytes (%) (Auto) 8 0-12 % Eosinophils (%) (Auto) 2 0-10 % Basophils (%) (Auto) 1 0-10 % Neutrophils # (Auto) 4.9 1.8-7.8 10^3/uL Lymphocytes # (Auto) 1.4 1.0-4.0 10^3/uL Monocytes # (Auto) 0.6 0.0-1.0 10^3/uL Eosinophils # (Auto) 0.1 0.0-0.3 10^3/uL Basophils # (Auto) 0.1 0.0-0.1 10^3/uL Immature Granulocyte # (Auto) 0.0 0.0-0.1 10^3/uL Sodium Level 139 135-145 MMOL/L Potassium Level 3.8 3.6-5.0 MMOL/L Chloride Level 106 98-107 MMOL/L Carbon Dioxide Level 24 21-32 MMOL/L Anion Gap 9 5-14 MMOL/L Blood Urea Nitrogen 10 7-18 MG/DL Creatinine 0.74 0.60-1.30 MG/DL Estimat Glomerular Filtration Rate > 60 BUN/Creatinine Ratio 14 Glucose Level 97 70-105 MG/DL Calcium Level 8.9 8.5-10.1 MG/DL Corrected Calcium 8.6 8.5-10.1 MG/DL Total Bilirubin 0.4 0.1-1.0 MG/DL Aspartate Amino Transf (AST/SGOT) 20 5-34 U/L Alanine Aminotransferase (ALT/SGPT) 12 0-55 U/L Alkaline Phosphatase 51 40-136 U/L C-Reactive Protein High Sensitivity 1.23 H 0.00-0.50 MG/DL Total Protein 7.3 6.4-8.2 GM/DL Albumin 4.4 3.2-4.5 GM/DL (JOSEPH QUIROZ) My Orders Orders - JOSEPH QUIROZ Ua Culture If Indicated (11/17/20 10:25) Urine Bedside (11/17/20 10:25) Cbc With Automated Diff (11/17/20 10:44) Comprehensive Metabolic Panel (11/17/20 10:44) Hs C Reactive Protein (11/17/20 10:44) Ed Iv/Invasive Line Start (11/17/20 10:46) Lactated Ringers (Lr 1000 Ml Iv Solution (11/17/20 11:00) Ondansetron Injection (Zofran Injectio (11/17/20 11:00) Ketorolac Injection (Toradol Injection) (11/17/20 11:00) (JOSEPH QUIROZ) Medications Given in ED Current Medications Medications Dose Ordered Sig/Rox Route Start Time Stop Time Status Last Admin Dose Admin Ketorolac Tromethamine 30 mg ONCE ONCE IVP 11/17/20 11:00 11/17/20 11:01 DC 11/17/20 11:03 30 MG Lactated Ringer's 1,000 ml @ 0 mls/hr Q0M ONCE IV 11/17/20 11:00 11/17/20 11:01 DC 11/17/20 11:04 0 MLS/HR Ondansetron HCl 4 mg ONCE ONCE IVP 11/17/20 11:00 11/17/20 11:01 DC 11/17/20 11:03 4 MG (JOSEPH QUIROZ) Vital Signs/I&O 11/17/20 11/17/20 11/17/20 10:29 10:45 12:35 Temp 37.0 Pulse 92 92 75 Resp 20 20 18 B/P (MAP) 133/90 (104) 102/78 Pulse Ox 96 96 99 O2 Delivery Room Air (JOSEPH QUIROZ) Blood Pressure Mean: 104 Progress Progress Note : Time: Progress Note Obtain CBC, CMP, UA, abd B-HCG. Zofran for nausea, toradol for pain and IV fluids to start. Will review labs and determine next steps in management. ddx incisional hernia, appendicitis, pathology. (KILO NARAYAN) Progress Note #1: Progress Note I attest that I saw this patient alongside the medical student and agree with his documented history, physical exam and review of systems except as otherwise noted. Gave her some Toradol and Zofran as well as a bag of fluids. Suspect an incisional hernia versus adhesions. Could also be gynecologic. We will get a urine she has a negative test so ectopic less likely. Torsion less likely since has been going on for several days. She has not take anything for the pain herself today. No other significant abdominal surgeries besides the C- section. There is a small incisional hernia palpable without any abdominal contents protruding at the right side of the . Could also consider the possibility for appendicitis, ovarian cyst etc. We will drive appropriate imaging based on her response to pain meds and labs. Progress Note #2: Time: Progress Note The patient's pain is gone her nausea is gone. She is feeling much better. We discussed the possibility of an incisional hernia related to her Pfannenstiel in cision. We encouraged her to follow-up with either her primary care provider or referral to general surgery to have this investigated further. We discussed the possibility of ovarian cysts as well however with her positional situation musculoskeletal seems more likely. We offered to do a CT of the abdomen pelvis and after discussing the risks and benefits she elected not to at this time which is reasonable. We talked about return precautions and will provide her with some Naprosyn. (JOSEPH QUIROZ) Departure Impression Primary Impression: Incisional hernia without obstruction or gangrene Disposition: HOME, SELF-CARE Condition: Stable Departure-Patient Inst. Decision time for Depature: 12:20 (JOSEPH QUIROZ) Referrals: NO,LOCAL PHYSICIAN (PCP) Primary Care Physician RACHEL DE LA GARZA APRN (Family) Primary Care Physician SUZAN VASQUEZ DO Patient Instructions: Abdominal Hernia (DC) Add. Discharge Instructions: I believe the source of your pain is the small abdominal wall incision related to your scar however alternative possibilities include adhesions occur around the scar that could pop. He could also have an ovarian cyst which is not dangerous but it may hurt for a week or so. Your appendix could be the culprit if you develop fevers, increasing pain not responsive to pain medicines. Tylenol 1000 mg every 8 hours as necessary for pain. Naprosyn 1 to 2 tablets twice a day as necessary for pain. Heating pads can be helpful for discomfort. Call and make a follow-up appointment with Dr. Vasquez the general surgeon for routine follow-up examination or with your primary care doctor in the next 1 to 2 weeks. Return to the ER promptly if you are having intractable pain nausea or fever. Zofran/ondansetron 1 tablet every 6 hours under the tongue as necessary for nausea and/or vomiting. All discharge instructions reviewed with patient and/or family. Voiced understanding. Scripts Ondansetron (Ondansetron Odt) 4 Mg Tab.rapdis 4 MG PO Q6H PRN for NAUSEA/VOMITING, #8 TAB 0 Refills Prov: JOSEPH UQIROZ 11/17/20 Work/School Note: Work Release Form Date Seen in the Emergency Department: Nov 17, 2020 Return to Work: Nov 18, 2020 Restrictions: No Restrictions Copy Copies To 1: SUZAN VASQUEZ [facility] Nov 17, 2020 11:13 JOSEPH QUIROZ Nov 17, 2020 11:31
[2020-11-17 11:19] LABS: BASOPHILS # (AUTO) 0.1 10^3/uL (0.0-0.1); BASOPHILS % (AUTO) 1 % (0-10); EOSINOPHILS # (AUTO) 0.1 10^3/uL (0.0-0.3); EOSINOPHILS % (AUTO) 2 % (0-10); HEMATOCRIT 42 % (35-52); HEMOGLOBIN 13.6 g/dL (11.5-16.0); LYMPHOCYTES # (AUTO) 1.4 10^3/uL (1.0-4.0); LYMPHOCYTES % (AUTO) 20 % (12-44); MEAN CORPUSCULAR HEMOGLOBIN 27 pg (25-34); MEAN CORPUSCULAR HGB CONC 32 g/dL (32-36); MEAN CORPUSCULAR VOLUME 85 fL (80-99); MEAN PLATELET VOLUME 9.5 fL (9.0-12.2); MONOCYTES # (AUTO) 0.6 10^3/uL (0.0-1.0); MONOCYTES % (AUTO) 8 % (0-12); NEUTROPHILS # (AUTO) 4.9 10^3/uL (1.8-7.8); NEUTROPHILS % (AUTO) 69 % (42-75); PLATELET COUNT 305 10^3/uL (130-400); WHITE BLOOD COUNT 7.1 10^3/uL (4.3-11.0)
[2020-11-17 11:35] LABS: ALBUMIN 4.4 GM/DL (3.2-4.5); CHLORIDE 106 MMOL/L (98-107); POTASSIUM 3.8 MMOL/L (3.6-5.0); SODIUM 139 MMOL/L (135-145)
[2020-11-17 11:36] LABS: CALCIUM 8.9 MG/DL (8.5-10.1)
[2020-11-17 11:37] LABS: GLUCOSE 97 MG/DL (70-105)
[2020-11-17 11:38] LABS: TOTAL PROTEIN 7.3 GM/DL (6.4-8.2)
[2020-11-17 11:39] LABS: BILIRUBIN,TOTAL 0.4 MG/DL (0.1-1.0); CARBON DIOXIDE 24 MMOL/L (21-32)
[2020-11-17 11:41] LABS: ALKALINE PHOSPHATASE 51 U/L (40-136); CREATININE SERUM 0.74 MG/DL (0.60-1.30); GFR ESTIMATED > 60
[2020-11-17 11:42] LABS: BUN/CREATININE RATIO 14
[2020-11-17 11:44] LABS: ALANINE AMINOTRANSFERASE 12 U/L (0-55)
[2020-11-17] MEDS ORDERED: ONDA4TAB11 PO ×2 (12:22→12:40)
[2020-11-17 12:35] VITALS: BP 102/78
== END 2020-11-17 12:39 | disposition home or self-care (01) ==
LOC: EDUNIT# 10:24 → ER 10:25
DX: K43.2 Incisional hernia without obstruction or gangrene (principal); F17.210 Nicotine dependence, cigarettes, uncomplicated
CPT/HCPCS: 36415; 80053; 81000; 84703; 85025; 86141

== ENCOUNTER 2022-01-25 12:00 | Emergency (ER) | payer MEDICAID ==
[~2022-01-25] VITALS: Ht 157 cm; Wt 58.9 kg
[~2022-01-25 12:00] MED LIST changes: +ONDA4TAB11 PO
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
[2022-01-25] MEDS ORDERED: HYDROcodone/APAP 5 MG/325 MG (LORTAB) TAB PO ONE (13:30)
--- NOTE | 2022-01-25 13:55 | Diagnostic Imaging Report ---
PROCEDURE: CT maxillofacial without contrast. TECHNIQUE: Multiple contiguous axial images were obtained through the facial bones without the use of intravenous contrast. Auto Exposure Controls were utilized during the CT exam to meet ALARA standards for radiation dose reduction. INDICATION: Facial trauma and pain. COMPARISON: No comparison available. FINDINGS: There are no CT findings of an acute facial fracture. The bony orbit is intact. The intraorbital contents are unremarkable. There are no findings of a nasal bone fracture. There is no fracture evident of the maxilla. The zygomatic arches are intact. Pterygoid plates are unremarkable. There is no TMJ dislocation or evidence of a mandibular fracture. There is minimal mucosal thickening in the right maxillary sinus. The sinuses are otherwise clear. There is no blood or fluid in the paranasal sinuses. Middle ears and mastoids appear clear. There is a periapical lucency about the roots of the right second maxillary molar and also small lucency about the root of the left maxillary central incisor. There are multiple dental caries. IMPRESSION: 1. No CT findings of an acute facial fracture. 2. Periodontal disease. 3. Minimal mucosal thickening in the right maxillary sinus. Dictated by: Dictated on workstation # [id number]
[2022-01-25 14:25] VITALS: BP 125/86
== END 2022-01-25 14:26 | disposition home or self-care (01) ==
LOC: EDUNIT# 12:00 → ER 12:03
DX: S09.90XA Unspecified injury of head, initial encounter (principal); K08.89 Other specified disorders of teeth and supporting structures; F17.210 Nicotine dependence, cigarettes, uncomplicated; W51.XXXA Accidental striking against or bumped into by another person, initial encounter
CPT/HCPCS: 70486